=== PATIENT | female | born 1995 | race Caucasian/White ===

== ENCOUNTER 2020-04-23 17:37 | Emergency (ER) | payer BC, SELFPAY ==
[2020-04-23 17:50] VITALS: BP 108/88; PULSE 105; RESP 20; TEMP 36.9; O2SAT 98
--- NOTE | 2020-04-23 17:54 | ED.DENTAL ---
HPI - Dental/Oral General Chief complaint: Dental/Oral Stated complaint: abscess tooth Time Seen by Provider: 04/23/20 17:55 Source: patient Mode of arrival: ambulatory Limitations: no limitations History of Present Illness HPI Narrative: 24-year-old woman comes in today complaining of pain and swelling at her left upper molar that has been present for the last week and half. Patient states that she has had no fever, nausea, vomiting, difficulty swallowing or difficulty breathing. She has had no problems with this tooth before. She is trying to get into a dentist. MD Complaint: tooth pain Onset (ago): week(s) (09/13) Duration: constant Severity: moderate Relieving factors: nothing Exacerbating factors: chewing and cold Context: history of dental caries Associated symptoms: gum swelling Treatment prior to arrival: oral analgesic Related Data Allergies Allergy/AdvReac Type Severity Reaction Status Date / Time No Known Allergies Allergy Unverified 04/23/20 17:56 Review of Systems Constitutional: Constitutional: Denies chills and Denies fever(s) Eyes: Eyes: Denies change in vision and Denies photophobia ENT: Denies dysphagia, Denies nasal congestion and Denies sore throat Cardiovascular: Cardiovascular: Denies chest pain and Denies radiating jaw, neck or arm pain Respiratory: Respiratory: Denies cough, Denies dyspnea and Denies wheezing Gastrointestinal: Gastrointestinal: Denies nausea and Denies vomiting Integumentary/Breasts: Skin/Breast: Denies pruritus, Denies erythema and Denies rash Allergic/Immunologic: Allergic/Immunologic: Denies lip swelling, Denies tongue swelling and Denies wheezing PMFSH Social History Social History Smoking status: Current every day smoker Alcohol intake: never Substance use: never Living arrangements: with family Gender identity (if verbalized by the patient): Female Exam Const: General: healthy appearing and alert Nutritional Appearance: obese Orientation/consciousness: patient oriented x3 Limitations: no limitations Other: Mild acute distress. HENMT: Head: normal to inspection Ears: external ears normal, TM's normal bilaterally and EAC's normal Face and sinus: normal facial exam Mouth: Yes moist mucous membranes Throat: posterior oropharynx normal Other: And tenderness over tooth 15. There is decay on the buccal surface with minimal gingival swelling and no erythema, drainage or fluctuance. Eyes: Conjunctivae: conjunctivae normal Pupils: Equal, round and reactive pupils present EOM: EOMs intact bilaterally Resp: Effort & Inspection: normal respiratory effort and not labored Auscultation: clear to auscultation bilaterally, no rales, no rhonchi and no wheezes Cardio: Rate: regular rate Rhythm: regular rhythm Heart sounds: no murmurs Skin: General skin exam: normal color, no jaundice and no pallor Rashes: no rashes Neuro: General: patient oriented x3, moves all extremities, no focal motor deficits and CN's II-XI intact bilaterally Speech: normal speech Gait exam (Neuro): Normal gait present Extrem: General: normal to inspection and no clubbing, cyanosis or edema Psych: Appearance: grossly normal and well kempt Mental Status: mental status grossly normal Affect: normal affect Attitude: cooperative Thought content: Yes Normal thought content present Discharge Plan Discharge Clinical Impression: Toothache Patient Disposition: Home, Self-Care Condition: Stable Instructions: Antibiotic Form, Toothache (ED) Additional Instructions: Taking [id number] anti-inflammatories may help your pain. Prescriptions: New clindamycin HCl 300 mg capsule 300 mg PO Q6H Qty: 40 RF: 0 acetaminophen-codeine 300-30 mg tablet 1 tablet PO Q6H PRN (Reason: pain) Qty: 15 RF: 0 Follow-up/Referrals: Jasiel,MD Ji [Primary Care Provider] - Stand Alone Forms: Work/School Rele
== END 2020-04-23 18:30 | disposition home or self-care (01) ==
PROVIDERS: Emergency Provider Emergency Medicine; PCP Family Medicine
DX: K08.89 Other specified disorders of teeth and supporting structures (principal)
CPT/HCPCS: 99283

== ENCOUNTER 2022-01-09 15:19 | Emergency (ER) | payer BC, SELFPAY ==
--- NOTE | 2022-01-09 15:55 | ED.URI ---
HPI - URI/Sore Throat General Chief Complaint: Upper Respiratory Infection Stated Complaint: labored breathing whizzing cough Time Seen by Provider: 01/09/22 15:55 Source: patient Mode of arrival: ambulatory History of Present Illness HPI Narrative: This is a 26-year-old female that has been having cough and some congestion over the past 3 days has a history of smoking and currently has some wheezing but not short of breath no fever chills does have a mild productive cough with white sputum with no chest pain no fever chills no abdominal pain no nausea vomiting. MD elicited complaint: cough Onset (ago): day(s) Severity: mild Description of mucous: clear Related Data Allergies Allergy/AdvReac Type Severity Reaction Status Date / Time No Known Allergies Allergy Unverified 01/09/22 16:01 Review of Systems Review of Systems: All systems reviewed & are unremarkable except as noted in HPI and below PMFSH Past Medical History Medical History Tobacco use Social History Social History Smoking status: Current every day smoker Alcohol intake: never Substance use: never Gender identity (if verbalized by the patient): Female Exam Const: General: no acute distress Orientation/consciousness: patient oriented x3 HENMT: Head: normal to inspection Eyes: Conjunctivae: conjunctivae normal Pupils: Equal, round and reactive pupils present Neck: Neck: normal visual inspection, no lymphadenopathy and no meningeal signs Chest: Chest palpation & inspection: normal inspection of the chest Resp: Effort & Inspection: normal respiratory effort Auscultation: wheezes Cardio: Rate: regular rate Rhythm: regular rhythm GI: GI Palp: Yes Soft to palpation : General: Yes no CVA tenderness Urinary Catheter: Urinary Catheter: patent and draining Back/Spine/Pelvis: Back: no CVA tenderness Skin: General skin exam: normal color Rashes: no rashes Neuro: General: patient oriented x3 and moves all extremities Extrem: General: normal to inspection Psych: Mental Status: mental status grossly normal Course Course Emergency Course: assessment of patient, O2 sats within normal range the patient not acutely ill no shortness of breath, will send antibiotics and ProAir to her local pharmacy. Critical Care Time Critical Care Time Critical Care Time: No Discharge Plan Discharge Clinical Impression: Upper respiratory infection Qualifiers: URI type: unspecified URI Qualified Code(s): J06.9 - Acute upper respiratory infection, unspecified Patient Disposition: Home, Self-Care Condition: Stable Instructions: Antibiotic Form, Upper Respiratory Infection (ED) Additional Instructions: take medicine as prescribed, if Tessalon Perles to costly can use [id number] Robitussin. Advised to establish with a physician locally and follow-up within the next 2 weeks. Prescriptions: New azithromycin [Zithromax Z-Jevon] 250 mg tablet See Rx Instructions .ROUTE .COMPLEX Qty: 6 RF: 0 albuterol sulfate [ProAir HFA] 90 mcg/actuation HFA aerosol inhaler 2 puff inhalation QID PRN (Reason: shortness of breath or wheezing) Qty: 6.7 RF: 0 Follow-up/Referrals: Jasiel,MD Ji [Primary Care Provider] - Time of Disposition: 16:02
[2022-01-09 15:56] VITALS: BP 148/83; PULSE 94; RESP 20; TEMP 36.9; O2SAT 97
[2022-01-09 16:00] VITALS: O2SAT 97
[2022-01-09 16:07] VITALS: PULSE 88; RESP 20; O2SAT 97
== END 2022-01-09 16:08 | disposition home or self-care (01) ==
PROVIDERS: Emergency Provider Emergency Medicine; PCP Family Medicine
DX: J06.9 Acute upper respiratory infection, unspecified (principal)
CPT/HCPCS: 99283

== ENCOUNTER 2024-05-24 13:47 | Emergency (ER) | payer BC, SELFPAY ==
--- NOTE | ~2024-05-24 | XR_ITS ---
XR hip RT 2V w AP pelvis Ordering provider: Enedina Baig MD History: . intermittent RT hip pain . Comparison: None. FINDINGS: BONES: No acute fracture or dislocation. HIP JOINT SPACES: Bilateral hip mild to moderate osteoarthritic changes. SACROILIAC JOINT SPACES/LUMBAR SPINE: The sacroiliac joint spaces are normal. Mild degenerative solorzano es of the visualized lower lumbar spine. PUBIC SYMPHYSIS: Normal. SOFT TISSUES: Normal. IMPRESSION: No acute osseous abnormality pelvis and right hip. Reviewed, dictated and finalized at location A.
--- NOTE | ~2024-05-24 | US_ITS ---
RIGHT LOWER EXTREMITY VENOUS ULTRASOUND Ordering provider: Enedina Baig MD History: . thigh swelling and pain . Comparison: None. FINDINGS: --COMMON FEMORAL: Patent and free of thrombus. Normal compressibility, phasic flow and augmentation. --PROXIMAL SUPERFICIAL FEMORAL: Patent and free of thrombus. Normal compressibility, phasic flow and augmentation. --DISTAL SUPERFICIAL FEMORAL: Patent and free of thrombus. Normal compressibility, phasic flow and au gmentation. --POPLITEAL: Patent and free of thrombus. Normal compressibility, phasic flow and augmentation. --POSTERIOR TIBIAL: Patent and free of thrombus. Normal compressibility, phasic flow and augmentation . IMPRESSION: Negative right lower extremity venous US. No deep vein thrombosis. Reviewed, dictated and finalized at location A.
[2024-05-24 14:01] VITALS: BP 178/107; PULSE 86; RESP 20; TEMP 36.4; O2SAT 100
[2024-05-24 18:06] LABS: D Dimer 0.56 ug/mL (<0.48)
[2024-05-24 18:11] VITALS: BP 145/101; PULSE 73; RESP 19; TEMP 37; O2SAT 96
--- NOTE | 2024-05-24 18:18 | ED.LOWEXIN ---
HPI - Extremity Injury (Lower) General Chief Complaint: Extremity Injury, Lower Stated Complaint: R leg pain vomiting Time Seen by Provider: 05/24/24 15:35 History of Present Illness HPI Narrative: 28-year-old female presenting with right leg pain. States that she developed right thigh pain earlier today that is significantly worsened with standing or lying on it. States that it now radiates into her hip. No recent injuries. Complains of chronic lower back pain. No numbness or weakness. No saddle anesthesia, bladder or bowel incontinence. No further complaints. Related Data Allergies Allergy/AdvReac Type Severity Reaction Status Date / Time No Known Allergies Allergy Verified 05/24/24 13:48 Review of Systems Review of Systems: All systems reviewed & are unremarkable except as noted in HPI and below PMFSH Past Medical History Medical History Tobacco use Social History Social History Smoking status: Current every day smoker Alcohol intake: never Substance use: never Living arrangements: with family Gender identity (if verbalized by the patient): Female Exam Narrative: GENERAL: Well-appearing, no acute distress, pleasant and cooperative HEAD: Normocephalic, atraumatic. EYES: PERRLA and EOMI. ENT: Mucous membranes moist. NECK: Supple. CHEST: No respiratory distress. HEART: Regular rate and rhythm ABDOMEN: Soft, nontender, nondistended EXTREMITIES: Normal range of motion. R hip with lateral tenderness, no redness, distal pulses 2+ SKIN: Warm, dry, no rash. NEURO: Alert and oriented x3. PSYCH: Normal mood and affect. Course Vital Signs Vital signs: Vital Signs Temperature 97.6 F 05/24/24 14:01 Pulse Rate 86 05/24/24 14:01 Respiratory Rate 20 05/24/24 14:01 Blood Pressure 178/107 H 05/24/24 14:01 Pulse Oximetry 100 05/24/24 14:01 Oxygen Delivery Room Air 05/24/24 14:01 Temperature 98.6 F 05/24/24 18:11 Pulse Rate 73 05/24/24 18:11 Respiratory Rate 19 05/24/24 18:11 Blood Pressure 145/101 H 05/24/24 18:11 Pulse Oximetry 96 05/24/24 18:11 Oxygen Delivery Room Air 05/24/24 14:01 MDM - Extremity Injury (Lower) MDM Narrative Medical decision making narrative: 28-year-old female presenting with right thigh and leg pain. Exam remarkable for the above. D-dimer is elevated so will obtain an ultrasound of the right leg as well as x-ray of the hip. ultrasound and x-ray show no acute abnormalities. Patient with some improvement in her pain with the Flexeril. Will send in for Flexeril prescription advised PCP follow-up. Appropriate return precautions given. Patient discharged in stable condition. Lab Data Labs: Lab Results 05/24/24 Range/Units 17:45 D-Dimer 0.56 H (<0.48) ug/mL Critical Care Time Critical Care Time Critical Care Time: No Discharge Plan Discharge Clinical Impression: Hip pain, right Patient Disposition: Home, Self-Care Condition: Stable Instructions: Antibiotic Form, Hip Pain (ED) Additional Instructions: You may use the muscle relaxer as needed. Follow-up closely with your PCP. If your symptoms worsen or other concerning symptoms arise, please return to the ER. Prescriptions: No Action azithromycin [Zithromax Z-Jevon] 250 mg tablet See Rx Instructions .ROUTE .COMPLEX Qty: 6 0RF Rx Instructions: For 250 mg dose pack: take 500 mg today (day 1), then 250 mg for 4 days (days 2-5) albuterol sulfate [ProAir HFA] 90 mcg/actuation HFA aerosol inhaler 2 puff inhalation QID PRN (Reason: shortness of breath or wheezing) Qty: 6.7 0RF Follow-up/Referrals: Jasiel,MD Ji [Primary Care Provider] - Stand Alone Forms: Work/School Release IP
[2024-05-24] MEDS: CYCLOBENZAPRINE HCL 10 MG TABLET PO (18:21)
[2024-05-24 20:28] VITALS: BP 143/97; PULSE 77; RESP 16; TEMP 36.6; O2SAT 99
== END 2024-05-24 20:29 | disposition home or self-care (01) ==
PROVIDERS: Emergency Provider Emergency Medicine; PCP Family Medicine
DX: M25.551 Pain in right hip (principal)
CPT/HCPCS: 36415; 73502; 85380; 93971; 99284; A9270

== ENCOUNTER 2024-11-20 15:18 | Emergency (ER) | payer BC, SELFPAY ==
[2024-11-20 15:25] VITALS: BP 152/95; PULSE 98; RESP 18; TEMP 36.6; O2SAT 96
--- NOTE | 2024-11-20 15:36 | ED_ITS ---
HPI - Dental/Oral General Stated complaint: dental abscess Time Seen by Provider: 11/20/24 15:35 Source: patient Mode of arrival: ambulatory History of Present Illness HPI Narrative: 28 years old white female drove herself to the emergency room because of pain add the right upper wisdom tooth started 1 week ago. She denies any headache, fever, chills, trouble swallowing or breathing. Related Data Allergies Allergy/AdvReac Type Severity Reaction Status Date / Time No Known Allergies Allergy Verified 05/24/24 13:48 Review of Systems Review of Systems: All systems reviewed & are unremarkable except as noted in HPI and below PMFSH Past Medical History Medical History Tobacco use Social History Social History Smoking status: Current every day smoker Alcohol intake: never Substance use: never Living arrangements: with family Gender identity (if verbalized by the patient): Female Exam Narrative: General appearance: Well-developed, well-nourished Skin: Normal color Head: Normocephalic, nontraumatic Eyes: Clear conjunctiva ENT: Oropharynx normal, ears normal, nose normal Right upper withdom tooth caries, no abscess formation Neck: Supple, nontender Chest and respiratory: Airway patent, no respiratory distress, no accessory mus eugenio use Heart: Regular rate/rhythm Abdomen: Soft, nontender, no organomegaly, quiet bowel sounds Musculoskeletal: Normal range of motion, nontender back Neurologic: Alert and oriented ?3, RECORDS SECTION SUPERVISOR is normal as tested, no gross motor deficit Course Vital Signs Vital signs: Vital Signs Temperature 36.6 C 11/20/24 15:25 Pulse Rate 98 11/20/24 15:25 Respiratory Rate 18 11/20/24 15:25 Blood Pressure 152/95 H 11/20/24 15:25 Pulse Oximetry 96 11/20/24 15:25 Oxygen Delivery Room Air 11/20/24 15:25 Temperature 36.6 C 11/20/24 15:25 Pulse Rate 98 11/20/24 15:25 Respiratory Rate 18 11/20/24 15:25 Blood Pressure 152/95 H 11/20/24 15:25 Pulse Oximetry 96 11/20/24 15:25 Oxygen Delivery Room Air 11/20/24 15:25 Critical Care Time Critical Care Time Critical Care Time: No Discharge Plan Discharge Clinical Impression: Pain due to dental caries Patient Disposition: Home, Self-Care Condition: Stable Instructions: Antibiotic Form, Toothache (ED) Additional Instructions: Return if symptoms are worsening , call your dentist for appointment, take Tylenol as as needed for aches and pain, continue home medications. Patient Language: [place] Prescriptions: New penicillin V potassium 500 mg tablet 500 mg PO Q6H Qty: 40 0RF ibuprofen [IBU] 800 mg tablet 800 mg PO TID Qty: 20 0RF No Action azithromycin [Zithromax Z-Jevon] 250 mg tablet See Rx Instructions .ROUTE .COMPLEX Qty: 6 0RF Rx Instructions: For 250 mg dose pack: take 500 mg today (day 1), then 250 mg for 4 days (days 2-5) albuterol sulfate [ProAir HFA] 90 mcg/actuation HFA aerosol inhaler 2 puff inhalation QID PRN (Reason: shortness of breath or wheezing) Qty: 6.7 0RF cyclobenzaprine 10 mg tablet 10 mg PO TID PRN (Reason: muscle spasm) Qty: 20 0RF Follow-up/Referrals: Jasiel,MD Ji [Primary Care Provider] - Stand Alone Forms: Work/School Release IP
== END 2024-11-20 15:44 | disposition home or self-care (01) ==
LOC: CHSED 15:48
PROVIDERS: Emergency Provider Emergency Medicine; PCP Family Medicine
DX: K02.9 Dental caries, unspecified (principal); F17.200 Nicotine dependence, unspecified, uncomplicated
CPT/HCPCS: 99283

== ENCOUNTER 2024-12-08 11:31 | Emergency (ER) | payer BC, SELFPAY ==
[2024-12-08 11:35] VITALS: BP 131/97; PULSE 73; RESP 18; TEMP 36.6; O2SAT 98
--- NOTE | 2024-12-08 11:40 | ED.WOUNDLAC ---
HPI - Wound/Laceration General Chief Complaint: Wound/Laceration Stated Complaint: ring laceration Time Seen by Provider: 12/08/24 11:40 Source: patient Mode of arrival: ambulatory Limitations: no limitations History of Present Illness HPI narrative: patient is a 29-year-old female with a significant past medical history presents today for a laceration to her right middle finger. It is to the distal area close to the nail bed. She says that she was open a can and they can sliced her finger open. Currently he is sitting and in bed of iodine soaking and iodine. And disinfecting. The laceration is about 2.5 cm as stated is in the distal dorsal aspect of the middle finger on the right hand. It is not very D so has not look like he will need stitches but will need some Dermabond. Onset (ago): minute(s) Extremity Location: Right: hand ( 2.5 cm laceration distal dorsal aspect right middle finger) Place: home Patient tetanus UTD: Yes Context: accidental Associated symptoms: none Related Data Allergies Allergy/AdvReac Type Severity Reaction Status Date / Time No Known Allergies Allergy Verified 12/08/24 11:33 Review of Systems Review of Systems: All systems reviewed & are unremarkable except as noted in HPI and below Constitutional: Constitutional: Reports no additional constitutional complaints Eyes: Eyes: Reports as per HPI ENT: Reports system reviewed and no additional complaints, except as documented Cardiovascular: Cardiovascular: Reports no additional cardiovascular complaints Respiratory: Respiratory: Reports no additional respiratory complaints Gastrointestinal: Gastrointestinal: Reports no additional gastrointestinal complaints Genitourinary: Genitourinary: Reports no additional female genitourinary complaints Musculoskeletal: Musculoskeletal: Reports no additional musculoskeletal complaints Integumentary/Breasts: Skin/Breast: Reports as per HPI Comments: 2.5 cm laceration to dorsal aspect of right middle finger Neurologic: Reports system reviewed and no additional complaints, except as documented Psychiatric: Psychiatric: Reports no additional psychiatric complaints Endocrine: Endocrine: Reports no additional endocrine complaints Hematologic/Lymphatic: Hematologic/Lymphatic: Reports no additional hematologic/lymphatic complaints Allergic/Immunologic: Allergic/Immunologic: Reports no additional allergic/immunologic complaints PMFSH Past Medical History Medical History Tobacco use Social History Social History Smoking status: Current every day smoker Alcohol intake: never Substance use: never Living arrangements: with family Gender identity (if verbalized by the patient): Female Exam Const: General: healthy appearing Nutritional Appearance: well nourished Orientation/consciousness: patient oriented x3 HENMT: Head: normal to inspection Ears: external ears normal Face/Nose/Sinus: Normal external nose present Face and sinus: normal facial exam Mouth: Yes Normal oral and palatal mucosa present Teeth and gingiva: dentition normal Eyes: Conjunctivae: conjunctivae normal Pupils: Equal, round and reactive pupils present EOM: EOMs intact bilaterally Direct Ophthalmoscopy: no photophobia Neck: Neck: normal visual inspection Chest: Chest palpation & inspection: normal inspection of the chest Resp: Effort & Inspection: normal respiratory effort Auscultation: clear to auscultation bilaterally Cardio: Rate: regular rate Rhythm: regular rhythm GI: GI Palp: Yes Soft to palpation Back/Spine/Pelvis: Back: no CVA tenderness Skin: General skin exam: normal color Rashes: no rashes Wounds: wounds noted ( 2.5 cm laceration to dorsal aspect of the middle finger of right hand) Neuro: General: patient oriented x3 Cranial nerves: Yes Nystagmus not present Speech: normal speech Gait exam (Neuro): Normal gait present Extrem: General: normal to inspection Psych: Mental Status: mental status grossly normal Affect: normal affect Attitude: cooperative Course Vital Signs Vital signs: Vital Signs Temperature 97.9 F 12/08/24 11:35 Pulse Rate 73 12/08/24 11:35 Respiratory Rate 18 12/08/24 11:35 Blood Pressure 131/97 H 12/08/24 11:35 Pulse Oximetry 98 12/08/24 11:35 Oxygen Delivery Room Air 12/08/24 11:35 Temperature 97.9 F 12/08/24 11:35 Pulse Rate 73 12/08/24 11:35 Respiratory Rate 18 12/08/24 11:35 Blood Pressure 131/97 H 12/08/24 11:35 Pulse Oximetry 98 12/08/24 11:35 Oxygen Delivery Room Air 12/08/24 11:35 MDM - Wound/Laceration MDM Narrative Medical decision making narrative: 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 Cut is a 2.5 cm in length but is not very deep. She will not need stitches she can get away with just applying Dermabond. Will clean the area well with axilla and applied Dermabond. Dermabond was successfully applied was no complications patient tolerated procedure well. Differential Diagnosis Differential diagnosis: Likely laceration Medical Records Attestation: I reviewed the patient's medical records. Lab Data Attestation: I reviewed the patient's lab results. Discharge Plan Discharge Clinical Impression: Laceration Patient Disposition: Home, Self-Care Condition: Stable Instructions: Laceration (ED) Additional Instructions: Keep area clean and dry and open to the dry air. Discussed with patient as she is going to go oxide needs to do some pain then to cover up with a bandage. Otherwise leave open to the dry air and keep clean. Patient Language: [place] Prescriptions: No Action azithromycin [Zithromax Z-Jevon] 250 mg tablet See Rx Instructions .ROUTE .COMPLEX Qty: 6 0RF Rx Instructions: For 250 mg dose pack: take 500 mg today (day 1), then 250 mg for 4 days (days 2-5) albuterol sulfate [ProAir HFA] 90 mcg/actuation HFA aerosol inhaler 2 puff inhalation QID PRN (Reason: shortness of breath or wheezing) Qty: 6.7 0RF penicillin V potassium 500 mg tablet 500 mg PO Q6H Qty: 40 0RF ibuprofen [IBU] 800 mg tablet 800 mg PO TID Qty: 20 0RF cyclobenzaprine 10 mg tablet 10 mg PO TID PRN (Reason: muscle spasm) Qty: 20 0RF Follow-up/Referrals: Jasiel,MD Ji [Primary Care Provider] - Time of Disposition: 11:50
[2024-12-08 11:59] VITALS: BP 131/97; PULSE 73; RESP 18; TEMP 36.6; O2SAT 98
== END 2024-12-08 11:59 | disposition home or self-care (01) ==
PROVIDERS: Emergency Provider Family Medicine; PCP Family Medicine
DX: S61.212A Laceration without foreign body of right middle finger without damage to nail, initial encounter (principal); W26.8XXA Contact with other sharp object(s), not elsewhere classified, initial encounter
CPT/HCPCS: 12001; 99282